=== PATIENT | male | born 1990 | race Caucasian/White ===

== ENCOUNTER 2017-10-11 11:31 | Emergency (ER) | payer BC, MEDICAID ==
[2017-10-11 11:31] VITALS: BMI 18.8
[2017-10-11 11:39] VITALS: RESP 18
--- NOTE | 2017-10-11 11:52 | ED PDOC ---
Arrival/HPI - General Historian: Patient - History of Present Illness Time/Duration: < week Symptom Onset: Sudden Symptom Course: Unchanged Quality: Stabbing <Kodak Spencer - Last Filed: 10/11/17 16:43> - History of Present Illness Severity Level: Severe Activities at Onset: Rest Context: Home <Nithin Garcia - Last Filed: 10/11/17 17:56> - General Chief Complaint: Chest Pain Time Seen by Provider: 10/11/17 11:33 - History of Present Illness Narrative History of Present Illness (Text): 10/11/17 11:48 Pt is a 27 yo M with PMH of asthma, arthritis, seizure and lupus presents to ED due to a 2 day history of constant chest pain. Patient states that pain is sharp , midsternal, and radiates to right side of chest. Patient states that pain is worsened with exertion and deep inspiration. Patient tried using Prednisone, Zantac, and 800 mg of Ibuprofen to relieve the pain, but those did not help. Patient denies SOB, nausea, vomiting, abdominal pain, fever, chills, cough, trauma, DELACRUZ, or dizziness. No family cardiac history. PMD: Paulie (Kodak Spencer) Past Medical History - Provider Review Nursing Documentation Reviewed: Yes - Infectious Disease Hx of Infectious Diseases: None - Tetanus Immunization Tetanus Immunization: Up to Date - Cardiac Hx Cardiac Disorders: No Hx Hypertension: No - Pulmonary Hx Tuberculosis: No - Neurological HX Cerebrovascular Accident: No Hx Seizures: Yes - Hematological/Oncological Hx Cancer: No - Genitourinary/Gynecological Hx Sexually Transmitted Diseases: No - Psychiatric Hx Depression: No Hx Emotional Abuse: No Hx Physical Abuse: No Hx Substance Use: No - Past Surgical History Past Surgical History: No Previous - Suicidal Assessment Feels Threatened In Home Enviroment: No <Kodak Spencer - Last Filed: 10/11/17 16:43> - Travel History Have you recently traveled outside [place] w/in the past 3 mons?: No - Past History Past History: Non-Contributing <Nithin Garcia - Last Filed: 10/11/17 17:56> Family/Social History - Physician Review Nursing Documentation Reviewed: Yes Family/Social History: No Known Family HX Hx Alcohol Use: No Hx Substance Use: No Hx Substance Use Treatment: No <Kodak Spencer - Last Filed: 10/11/17 16:43> Allergies/Home Meds <Kodak Spencer - Last Filed: 10/11/17 16:43> <JoseNithin - Last Filed: 10/11/17 17:56> Allergies/Adverse Reactions: Allergies No Known Allergies Allergy (Verified 01/12/14 01:23) Home Medications: Home Meds Medication Instructions Recorded Confirmed Zonisamide [Zonisamide] 200 mg PO BID 01/12/14 01/12/14 Review of Systems - Review of Systems Constitutional: Normal Eyes: Normal ENT: Normal Respiratory: Normal Cardiovascular: Chest Pain. absent: Palpitations, Edema, Calf Pain Gastrointestinal: Normal Genitourinary Male: Normal Musculoskeletal: Normal Skin: Normal Neurological: Normal Endocrine: Normal Hemo/Lymphatic: Normal Psychiatric: Normal <Carlito SpencerKodak - Last Filed: 10/11/17 16:43> Physical Exam Temperature: Afebrile Blood Pressure: Normal Pulse: Regular Respiratory Rate: Normal Appearance: Positive for: Non-Toxic Pain Distress: Moderate Mental Status: Positive for: Alert and Oriented X 3 - Systems Exam Head: Present: Atraumatic, Normocephalic Pupils: Present: PERRL Extroacular Muscles: Present: EOMI Conjunctiva: Present: Normal Mouth: Present: Moist Mucous Membranes Neck: Present: Normal Range of Motion Respiratory/Chest: Present: Clear to Auscultation, Good Air Exchange. No: Respiratory Distress, Accessory Muscle Use Cardiovascular: Present: Regular Rate and Rhythm, Normal S1, S2, Other (sternum TTP, right chest TTP). No: Murmurs Abdomen: No: Tenderness, Distention, Peritoneal Signs Back: Present: Normal Inspection Upper Extremity: Present: Normal Inspection. No: Cyanosis, Edema Lower Extremity: Present: Normal Inspection. No: Edema Neurological: Present: GCS=15, CN II-XII Intact, Speech Normal Skin: Present: Warm, Dry, Normal Color. No: Rashes Psychiatric: Present: Alert, Oriented x 3, Normal Insight, Normal Concentration <JohannaKodak - Last Filed: 10/11/17 16:43> Pulse: Tachycardic <Nithin Garcia - Last Filed: 10/11/17 17:56> Vital Signs Temp Pulse Resp BP Pulse Ox 10/11/17 16:36 98.1 F 71 18 101/59 L 96 10/11/17 15:48 71 18 116/74 95 10/11/17 13:03 91 H 18 114/79 99 10/11/17 11:44 98.2 F 113 H 18 112/83 100 10/11/17 11:39 98.2 F 113 H 18 112/83 100 Medical Decision Making <Kodak Spencer - Last Filed: 10/11/17 16:43> Re-evaluation Time: 16:30 Reassessment Condition: Improving,but remains with symptoms - Lab Interpretations I have reviewed the lab results: Yes Interpretation: Abnormal lab values (all labs normal except for slightly elevated lipase) - RAD Interpretation Plate Shop Helper: Radiologist - EKG Interpretation Interpreted by ED Physician: Yes Type: 12 lead EKG Comparison: No previous EKG avail. <Nithin Garcia - Last Filed: 10/11/17 17:56> ED Course and Treatment: 10/11/17 12:03 27 yo M presents with 2 day history of chest pain. Plan: - CBC, CMP - Coags - Cardiac ISO - Lipase - ESR, CRP - EKG - CXR - UA - Toradol - Reassess and disposition 10/11/17 12:18 PERC negative EKG reviewed shows rate of 99, NSR with sinus arrhythmia, biatrial enlargement. No ST-T wave abnormalities. 10/11/17 13:28 CXR reviewed by radiologist shows no active disease. 10/11/17 13:44 On reassessment, patient pain worsening after Toradol. Morphine and Benadryl given. Patient states that pain improved somewhat with those medications. CTA of chest ordered. 10/11/17 15:03 CTA Chest Impression: Unremarkable CT pulmonary angiogram. No pulmonary embolism. On reassessment, patient sleeping lying comfortably in bed. Patient pain improved, no tremors. Repeat Troponin and EKG. 10/11/17 15:18 Repeat EKG reviewed shows rate of 85, NSR, possible left atrial enlargement, no acute changes. 10/11/17 16:43 Repeat Troponin negative. Results discussed with patient. patient medically stable for discahrge. Will follow up with promotions coordinator as scheduled. (Kodak Spencer) I performed the hx and physical exam of the patient and discussed their mgt with the RESIDENT. I reviewed the RESIDENT's NOTE and agree with the assessment and plan of care. pt with reproducible substernal chest tenderness on exam no crepitus noted CTA b/l, no w/r/r, no lesions/rashes noted +S1, +S2, no m/r/r ext: no pitting edema noted b/l, intact ROM, strength 5/5 grossly intact in all limbs; no debora's sign after medications, pt felt improved 1545 - with negative CT chest results and negative 2nd trop, pt unlikely at risk for ACS/PE cause of symptoms atypical chest pain, likely explanation of pt's discomfort vital signs unchanged/stable 1645 pt remained comfortable pt/family are made aware of pt's medical results pt is encouraged fluids pt will follow up as directed pt will be discharged home (Nithin Garcia) - Lab Interpretations Lab Results: 10/11/17 11:40 10/11/17 11:40 Lab Results 10/11/17 15:30: Troponin I < 0.01 10/11/17 13:55: TSH 3rd Generation 3.31 10/11/17 11:40: C-Reactive Protein Pending, Lipase 316 H 10/11/17 11:40: ESR 11 10/11/17 11:40: Sodium 142, Potassium 3.8, Chloride 103, Carbon Dioxide 22, Anion Gap 21 H, BUN 17, Creatinine 0.9, Est GFR ( Amer) > 60, Est GFR ( Non-Af Amer) > 60, Random Glucose 92, Calcium 9.7, Magnesium 2.0, Total Bilirubin 0.9, AST 24, ALT 37, Alkaline Phosphatase 72, Lactate Dehydrogenase 443, Total Creatine Kinase 61, Troponin I < 0.01, Total Protein 8.2, Albumin 4.8 , Globulin 3.4, Albumin/Globulin Ratio 1.4 10/11/17 11:40: PT 18.0 H, INR 1.55 H, APTT 29.1 10/11/17 11:40: WBC 9.9, RBC 5.15, Hgb 15.9, Hct 42.4, MCV 82.3, MCH 30.9, MCHC 37.5 H, RDW 12.9, Plt Count 249, MPV 8.7, Gran % 67.1, Lymph % (Auto) 22.6, [place] % (Auto) 8.9 H, Eos % (Auto) 1.3 L, Baso % (Auto) 0.1, Gran # 6.64 H, Lymph # (Auto) 2.2, [place] # (Auto) 0.9 H, Eos # (Auto) 0.1, Baso # (Auto) 0.01 - RAD Interpretation Narrative RAD Interpretations (Text): Chest X-Ray: HISTORY: chest pain COMPARISON: Chest 07/10/2017. FINDINGS: LUNGS: No active pulmonary disease. PLEURA: No significant pleural effusion identified, no pneumothorax apparent. Minor left apical pleural thickening CARDIOVASCULAR: Normal. OSSEOUS STRUCTURES: No significant abnormalities. VISUALIZED UPPER ABDOMEN: Normal. OTHER FINDINGS: None. IMPRESSION: No active disease. 10/11/17 17:48 PROCEDURE: CT Chest with contrast (Pulmonary Angiogram) HISTORY: r/o PE COMPARISON: None available. TECHNIQUE: Axial computed tomography images were obtained of the chest in the pulmonary arterial phase of enhancement. Coronal and sagittal reformatted images were created and reviewed. Intravenous contrast dose: 100 Omnipaque 350 contrast Radiation dose: Total exam DLP = 180.58 mGy-cm. This CT exam was performed using one or more of the following dose reduction techniques: Automated exposure control, adjustment of the mA and/or kV according to patient size, and/or use of iterative reconstruction technique. FINDINGS: PULMONARY ARTERIES: Unremarkable. No pulmonary embolism. AORTA: No acute findings. No thoracic aortic aneurysm. LUNGS: Unremarkable. No nodule, mass or pulmonary consolidation. PLEURAL SPACES: Unremarkable. No effusion or pneumothorax. . HEART: Unremarkable. No cardiomegaly. No significant pericardial effusion. LYMPH NODES: No lymphadenopathy. . There is a small hiatal hernia with slight wall thickening of the distal esophagus likely due to protrusion of gastric mucosa. Possibility of esophagitis not excluded. BONES, CHEST WALL: Unremarkable. No fracture or destructive lesion OTHER FINDINGS: Unremarkable. IMPRESSION: Unremarkable CT pulmonary angiogram. No pulmonary embolus. (Nithin Garcia) Radiology Orders: 10/11/17 11:44 CHEST PORTABLE [RAD] Stat 10/11/17 13:40 ANGIO CHEST PE PROTOCOL [CT] Stat - EKG Interpretation EKG Interpretation (Text): 10/11/17 17:48 EKG: NSR at 100 bpm, normal axis, no ectopy, inverted T in leads V1-2, no st changes, ABNL EKG; no old ekg to compare with (Nithin Garcia) - Medication Orders Current Medication Orders: Discontinued Medications Diphenhydramine HCl (Benadryl) 25 mg IVP STAT STA Stop: 10/11/17 13:17 Last Admin: 10/11/17 13:30 Dose: 25 mg IVP Administration Document 10/11/17 13:30 EQ (Rec: 10/11/17 13:[address] [email or web address]) Charges for Administration # of IVP Administrations 1 Ketorolac Tromethamine (Toradol) 15 mg IVP STAT STA Stop: 10/11/17 12:05 Last Admin: 10/11/17 12:17 Dose: 15 mg MAR Pain Assessment Document 10/11/17 12:17 EQ (Rec: 10/11/17 12:17 EQ [email or web address]) Pain Reassessment Is this a pain reassessment? No Sleep Is patient sleeping during reassessment? No Presence of Pain Presence of Pain Yes IVP Administration Document 10/11/17 12:17 EQ (Rec: 10/11/17 12:17 EQ [email or web address]) Charges for Administration # of IVP Administrations 1 Morphine Sulfate (Morphine) 4 mg IVP STAT STA Stop: 10/11/17 13:17 Last Admin: 10/11/17 13:30 Dose: 4 mg MAR Pain Assessment Document 10/11/17 13:30 EQ (Rec: 10/11/17 13:[address] [facility] [id number]) Pain Reassessment Is this a pain reassessment? No Sleep Is patient sleeping during reassessment? No Presence of Pain Presence of Pain Yes Pain Scale Used Pain Scale Used Numeric IVP Administration Document 10/11/17 13:30 EQ (Rec: 10/11/17 13:[address] [facility] [id number]) Charges for Administration # of IVP Administrations 1 Disposition/Present on Arrival - Present on Arrival Any Indicators Present on Arrival: No History of DVT/PE: No History of Uncontrolled Diabetes: No Urinary Catheter: No History Surgical Site Infection Following: None - Disposition Have Diagnosis and Disposition been Completed?: Yes Disposition Time: 16:44 <JohannaKodak - Last Filed: 10/11/17 16:43> - Present on Arrival History of Decub. Ulcer: No - Disposition Patient Plan: Discharge <Nithin Garcia - Last Filed: 10/11/17 17:56> - Disposition Diagnosis: Chest pain Disposition: HOME/ ROUTINE Condition: STABLE Discharge Instructions (ExitCare): Chest Pain That Is Not Caused by the Heart ( [place]) Print Language: ESTONIAN Additional Instructions: 1. Follow up with rhematologist as scheduled 2. Take Naprosyn as needed, if taking Naprosyn do not take ibuprofen 3. Return to ED if symptoms worsen BRODIE YBARRA, thank you for letting us take care of you today. Your provider was Nithin Garcia MD and you were treated for CHEST PAIN. The emergency medical care you received today was directed at your acute symptoms. If you were prescribed any medication, please fill it and take as directed. It may take several days for your symptoms to resolve. Return to the Emergency Department if your symptoms worsen, do not improve, or if you have any other problems. Please contact your doctor or call one of the physicians/clinics you have been referred to that are listed on the Patient Visit Information form that is included in your discharge packet. Bring any paperwork you were given at discharge with you along with any medications you are taking to your follow up visit. Our treatment cannot replace ongoing medical care by a primary care provider outside of the emergency department. Thank you for allowing the [facility] team to be part of your care today. Prescriptions: Naproxen [Naprosyn] 500 mg PO TID PRN #15 tablet PRN Reason: Pain, Moderate (4-7) Forms: [employer] (Mongolian)
[2017-10-11 11:54] LABS: BASO # 0.01 K/mm3 (0.0-2.0); BASO % 0.1 % (0.0-3.0); EOS # 0.1 (0.0-0.7); EOS % 1.3 % (1.5-5.0); GRAN # 6.64 (1.4-6.5); GRAN % 67.1 % (50.0-68.0); HEMOGLOBIN 15.9 g/dL (14.0-18.0); LYMPH # 2.2 (1.2-3.4); LYMPH % 22.6 % (22.0-35.0); MEAN CELL VOLUME 82.3 fl (80.0-105.0); MEAN CORPUSCULAR HEMOGLOBIN 30.9 pg (25.0-35.0); MEAN CORPUSCULAR HGB CONC 37.5 g/dl (31.0-37.0); MEAN PLATELET VOLUME 8.7 fl (7.0-11.0); MONO # 0.9 (0.1-0.6); MONO % 8.9 % (1.0-6.0); RBC 5.15 10^6/uL (3.5-6.1); RED CELL DISTRIBUTION WIDTH 12.9 % (11.5-14.5); WHITE BLOOD COUNT 9.9 10^3/ul (4.5-11.0)
[2017-10-11 12:04] LABS: ALB/GLOB RATIO 1.4 (1.1-1.8); ALBUMIN 4.8 g/dL (3.0-4.8); ALT/SGPT 37 U/L (7-56); AST/SGOT 24 U/L (17-59); BLOOD UREA NITROGEN 17 mg/dL (7-21); CALCIUM 9.7 mg/dL (8.4-10.5); GFR AFRICAN-AMERICAN > 60; GFR NON-AFRICAN AMERICAN > 60
[2017-10-11 12:15] LABS: TROPONIN I < 0.01 ng/mL
[2017-10-11 12:33] LABS: INR 1.55 (0.93-1.08); PARTIAL THROMBOPLASTIN TIME 29.1 Seconds (25.1-36.5)
--- NOTE | 2017-10-11 12:39 | RAD ---
HISTORY: chest pain COMPARISON: Chest 07/10/2017. FINDINGS: LUNGS: No active pulmonary disease. PLEURA: No significant pleural effusion identified, no pneumothorax apparent. Minor left apical pleural thickening CARDIOVASCULAR: Normal. OSSEOUS STRUCTURES: No significant abnormalities. VISUALIZED UPPER ABDOMEN: Normal. OTHER FINDINGS: None. IMPRESSION: No active disease.
[2017-10-11] MEDS ORDERED: DiphenhydrAMINE 50 mg/ml Inj IVP STA (13:16)
[2017-10-11] MEDS ORDERED: Morphine 4 mg/ml ISec IVP STA (13:16)
[2017-10-11] MEDS ORDERED: Iohexol 350 MG/100 ML VIAL ONE (13:59)
--- NOTE | 2017-10-11 14:48 | CT ---
PROCEDURE: CT Chest with contrast (Pulmonary Angiogram) HISTORY: r/o PE COMPARISON: None available. TECHNIQUE: Axial computed tomography images were obtained of the chest in the pulmonary arterial phase of enhancement. Coronal and sagittal reformatted images were created and reviewed. Intravenous contrast dose: 100 Omnipaque 350 contrast Radiation dose: Total exam DLP = 180.58 mGy-cm. This CT exam was performed using one or more of the following dose reduction techniques: Automated exposure control, adjustment of the mA and/or kV according to patient size, and/or use of iterative reconstruction technique. FINDINGS: PULMONARY ARTERIES: Unremarkable. No pulmonary embolism. AORTA: No acute findings. No thoracic aortic aneurysm. LUNGS: Unremarkable. No nodule, mass or pulmonary consolidation. PLEURAL SPACES: Unremarkable. No effusion or pneumothorax. . HEART: Unremarkable. No cardiomegaly. No significant pericardial effusion. LYMPH NODES: No lymphadenopathy. . There is a small hiatal hernia with slight wall thickening of the distal esophagus likely due to protrusion of gastric mucosa. Possibility of esophagitis not excluded. BONES, CHEST WALL: Unremarkable. No fracture or destructive lesion OTHER FINDINGS: Unremarkable. IMPRESSION: Unremarkable CT pulmonary angiogram. No pulmonary embolus.
[2017-10-11 15:48] VITALS: PULSE 71
[2017-10-11 16:46] VITALS: BP 101/59; TEMP 98.1; O2SAT 96
--- NOTE | 2017-10-12 13:47 | CARD ---
APPROVED REPORT EKG Measurement Heart [id number] <Conclusion> Normal sinus rhythm Possible Left atrial enlargement Borderline ECG
--- NOTE | 2017-10-12 13:50 | CARD ---
APPROVED REPORT EKG Measurement Heart [id number] <Conclusion> Normal sinus rhythm with sinus arrhythmia Biatrial enlargement Abnormal ECG
== END 2017-10-11 17:00 | disposition home or self-care (01) ==
LOC: ED 11:31
DX: R07.9 Chest pain, unspecified (principal); M32.9 Systemic lupus erythematosus, unspecified
CPT/HCPCS: 71045; 71275; 80053; 82550; 83615; 83690; 83735; 84443; 84484; 85025; 85610; 85651; 85730; 86140; 93005; 96374; 96375; 99283; J1200; J1885; J2270; Q9967

== ENCOUNTER 2017-11-15 17:21 | Emergency (ER) | payer MEDICAID ==
[2017-11-15 17:21] VITALS: BMI 18.8
[2017-11-15] MEDS ORDERED: Sodium Chloride 0.9% 1,000 ML IV SCH (17:45)
[2017-11-15 17:47] VITALS: RESP 18; TEMP 98.2
--- NOTE | 2017-11-15 17:49 | ED PDOC ---
Arrival/HPI <Paul Betancourt - Last Filed: 11/15/17 21:31> - General Historian: Patient - History of Present Illness Time/Duration: 24 hours Symptom Onset: Gradual Symptom Course: Unchanged Quality: Burning Activities at Onset: Light Context: Home <Russ Currie - Last Filed: 11/15/17 21:34> - General Chief Complaint: Chest Pain Time Seen by Provider: 11/15/17 17:24 - History of Present Illness Narrative History of Present Illness (Text): 11/15/17 17:41 27 year old male, with past medical history of asthma, arthritis, seizure and lupus, and no known food or drug allergies presents to the Emergency Department complaining of epigastric chest pain since 10am yesterday. Patient described as sharp burning sensation across his chest from epigastric region, prompting him to present to the Emergency Department for evaluation. Patient informs similar symptoms in the past for which he was seen in the Emergency Department in September 2017 with no significant findings, never follow up with the GI/er physician. Patient denies any fever, chills, trauma, fall, nausea, vomiting, diarrhea, shortness of breath, palpitation, numbness, tingling, jaw pain, neck pain or any other complaints. (Russ Currie) Past Medical History - Provider Review Nursing Documentation Reviewed: Yes - Past History Past History: Non-Contributing - Infectious Disease Hx of Infectious Diseases: None - Tetanus Immunization Tetanus Immunization: Up to Date - Cardiac Hx Cardiac Disorders: No Hx Hypertension: No - Pulmonary Hx Tuberculosis: No - Neurological HX Cerebrovascular Accident: No Hx Seizures: Yes - Hematological/Oncological Hx Cancer: No - Genitourinary/Gynecological Hx Sexually Transmitted Diseases: No - Psychiatric Hx Depression: No Hx Emotional Abuse: No Hx Physical Abuse: No Hx Substance Use: No - Past Surgical History Past Surgical History: No Previous - Anesthesia Hx Anesthesia: No Hx Anesthesia Reactions: No Hx Malignant Hyperthermia: No - Suicidal Assessment Feels Threatened In Home Enviroment: No <Russ Currie - Last Filed: 11/15/17 21:34> Family/Social History - Physician Review Nursing Documentation Reviewed: Yes Family/Social History: No Known Family HX Smoking Status: Never Smoked Hx Alcohol Use: No Hx Substance Use: No Hx Substance Use Treatment: No <Russ Currie - Last Filed: 07/28/18 21:34> Allergies/Home Meds <Paul Betancourt - Last Filed: 11/15/17 21:31> <Russ Currie - Last Filed: 11/15/17 21:34> Allergies/Adverse Reactions: Allergies No Known Allergies Allergy (Verified 01/12/14 01:23) Home Medications: Home Meds Medication Instructions Recorded Confirmed Zonisamide [Zonegran] 200 mg PO BID 11/15/17 11/15/17 Review of Systems - Physician Review All systems were reviewed & negative as marked: Yes - Review of Systems Constitutional: absent: Fatigue, Fevers Eyes: absent: Vision Changes ENT: absent: Hearing Changes Respiratory: absent: SOB, Cough, Sputum Cardiovascular: Chest Pain Gastrointestinal: Abdominal Pain. absent: Diarrhea, Nausea, Vomiting Musculoskeletal: absent: Arthralgias, Back Pain, Neck Pain Skin: absent: Rash, Pruritis Neurological: absent: Headache, Dizziness Psychiatric: absent: Anxiety, Depression <Russ Currie - Last Filed: 11/15/17 21:34> Physical Exam Vital Signs Reviewed: Yes Temperature: Afebrile Blood Pressure: Normal Pulse: Regular Respiratory Rate: Normal Appearance: Positive for: Well-Appearing, Non-Toxic, Comfortable Pain Distress: Moderate Mental Status: Positive for: Alert and Oriented X 3 - Systems Exam Head: Present: Atraumatic, Normocephalic Pupils: Present: PERRL Extroacular Muscles: Present: EOMI Conjunctiva: Present: Normal Mouth: Present: Moist Mucous Membranes Neck: Present: Normal Range of Motion Respiratory/Chest: Present: Clear to Auscultation, Good Air Exchange. No: Respiratory Distress, Accessory Muscle Use, Wheezes, Decreased Breath Sounds, Rales, Retracting, Rhonchi, Tachypneic, Tender to Palpation Cardiovascular: Present: Regular Rate and Rhythm, Normal S1, S2. No: Murmurs Abdomen: Present: Tenderness (+ttp on the epigastric region, negative davidson sign, no cva tenderness). No: Distention, Peritoneal Signs, Rebound, Guarding Back: Present: Normal Inspection. No: CVA Tenderness, Midline Tenderness, Paraspinal Tenderness, Pain with Leg Raise, Decubitus Ulcer Upper Extremity: Present: Normal Inspection. No: Cyanosis, Edema Lower Extremity: Present: Normal Inspection. No: Edema Neurological: Present: GCS=15, CN II-XII Intact, Speech Normal, Motor Func Grossly Intact, Gait Normal, Memory Normal Skin: Present: Warm, Dry, Normal Color. No: Rashes Psychiatric: Present: Alert, Oriented x 3, Normal Insight, Normal Concentration <Russ Currie - Last Filed: 11/15/17 21:34> Vital Signs Temp Pulse Resp BP Pulse Ox 11/15/17 17:21 98.2 F 81 18 111/70 99 Medical Decision Making <Paul Betancourt - Last Filed: 11/15/17 21:31> - Lab Interpretations I have reviewed the lab results: Yes - RAD Interpretation Spotter: Radiologist - EKG Interpretation Interpreted by ED Physician: Yes Type: 12 lead EKG Comparison: Com.w/previous EKG <Russ Currie - Last Filed: 11/15/17 21:34> ED Course and Treatment: 11/15/17 17:50 Differential: Gastritis vs. PR vs. Pancreatitis vs. Drug abuse -Labs -EKG -CXR -IVF/pepcid/zofran -Observe and reassess 11/15/17 21:33 -Case discussed with Dr. Morris about this case earlier with the plan of care and labs/radiology orders. -HEART score is 1, low -PERC criteria is Zero -EKG: Sinus Tachycardia @ 106 BPM, no ST elevation or depression, no T wave inversion -Chest xray: compared with previous CXR, no active disease -Gallbladder sonogram: Normal right upper quadrant ultrasound. -Labs show no acute findings -Troponin is negative after 24 hours -Pt. feels better after medications given in the ER -Discharge home with carafate, education on continue your ompe but take it during morning with a cup of water and wait 1 hour prior to eating, keep your appointment with your GI for endoscopy and to test if you have h.pylori infection, follow up with your own pmd and er physician within 2 days, return to the Er for any new or worsening signs or symptoms. (Russ Currie) - Lab Interpretations Lab Results: 11/15/17 17:52 11/15/17 17:52 Lab Results 11/15/17 17:52: Sodium 142, Potassium 3.8, Chloride 103, Carbon Dioxide 24, Anion Gap 19, BUN 17, Creatinine 1.0, Est GFR ( Amer) > 60, Est GFR (Non- Af Amer) > 60, Random Glucose 92, Calcium 9.7, Magnesium 2.0, Total Bilirubin 1.1, AST 25, ALT 32, Alkaline Phosphatase 52, Lactate Dehydrogenase 405, Total Creatine Kinase 170, Troponin I < 0.01, Total Protein 8.1, Albumin 4.9 H, Globulin 3.2, Albumin/Globulin Ratio 1.5, Lipase 43 11/15/17 17:52: WBC 7.3 D, RBC 5.08, Hgb 15.3, Hct 42.4, MCV 83.5, MCH 30.1, MCHC 36.1, RDW 12.9, Plt Count 203, MPV 9.2, Gran % 71.2 H, Lymph % (Auto) 19.7 L, [place] % (Auto) 8.3 H, Eos % (Auto) 0.8 L, Baso % (Auto) 0.0, Gran # 5.18, Lymph # (Auto) 1.4, [place] # (Auto) 0.6, Eos # (Auto) 0.1, Baso # (Auto) 0.00 - RAD Interpretation Radiology Orders: 11/15/17 17:41 CHEST PORTABLE [RAD] Stat 11/15/17 19:27 GALLBLADDER & COMMON DUCT [US] Stat Chest xray: Lungs: Unremarkable. No consolidation. Pleural space: Unremarkable. No pneumothorax. Heart: Unremarkable. No cardiomegaly. Mediastinum: Unremarkable. Bones/joints: Unremarkable. IMPRESSION: Normal chest x-ray. Thank you for allowing us to participate in the care of your patient. Dictated and Authenticated by: Ari Tracey MD 11/15/2017 7:41 PM Eastern Time ([place] & [place]) ---- Gallbladder sonogram: FINDINGS: Liver: Unremarkable. No mass. No intrahepatic bile duct dilation. Gallbladder: Unremarkable. No gallstones. Common bile duct: Unremarkable as visualized. No stones. 4.4 cm Pancreas: Unremarkable as visualized. Right kidney: Unremarkable. No stones. No solid mass. No hydronephrosis. RIGHT kidney measures 9.4 cm x 3.5 cm x 5.5 cm IMPRESSION: Normal right upper quadrant ultrasound. Thank you for allowing us to participate in the care of your patient. Dictated and Authenticated by: Ari Tracey MD 11/15/2017 9:21 PM Eastern Time ([place] & [place]) (Russ Currie) - EKG Interpretation EKG Interpretation (Text): 11/15/17 17:59 -EKG: Sinus Tachycardia @ 106 BPM, no ST elevation or depression, no T wave inversion (Russ Currie) - Medication Orders Current Medication Orders: Sodium Chloride (Sodium Chloride 0.9%) 1,000 mls @ 100 mls/hr IV .Q10H SNEHA Last Admin: 11/15/17 17:58 Dose: 100 mls/hr eMAR Start Stop Document 11/15/17 17:58 EWO (Rec: 11/15/17 17:58 JULIETTE [id number]) Intravenous Solution Start Date 11/15/17 Start Time 17:58 Discontinued Medications Al Hydrox/Mg Hydrox/Simethicone (Maalox Plus 30 Ml) 30 ml PO STAT STA Stop: 11/15/17 19:28 Last Admin: 11/15/17 19:59 Dose: 30 ml Dicyclomine HCl (Bentyl) 20 mg PO STAT STA Stop: 11/15/17 19:28 Last Admin: 11/15/17 19:59 Dose: 20 mg Famotidine (Pepcid) 20 mg IVP STAT STA Stop: 11/15/17 17:42 Last Admin: 11/15/17 17:58 Dose: 20 mg IVP Administration Document 11/15/17 17:58 EWO (Rec: 11/15/17 17:58 Darcy [id number]) Charges for Administration # of IVP Administrations 1 Lidocaine HCl (Lidocaine 2% Viscous) 15 ml PO STAT STA Stop: 11/15/17 19:28 Last Admin: 11/15/17 19:59 Dose: 15 ml Ondansetron HCl (Zofran Inj) 4 mg IVP STAT STA Stop: 11/15/17 17:42 Last Admin: 11/15/17 17:58 Dose: 4 mg IVP Administration Document 11/15/17 17:58 EWO (Rec: 11/15/17 17:58 JULIETTE [id number]) Charges for Administration # of IVP Administrations 1 - PA / ASSISTANT PROFESSOR OF [employer]IMINAL JUSTICE / Resident Statement RANJEET has reviewed & agrees with the documentation as recorded. <SerafinPaul - Last Filed: 11/15/17 21:31> - PA / ASSISTANT PROFESSOR [employer]IN[employer] / Resident Statement RANJEET has reviewed & agrees with the documentation as recorded. - Scribe Statement The provider has reviewed the documentation as recorded by the Scribe <Russ Currie - Last Filed: 11/15/17 21:34> - Scribe Statement Rd Matthews. All medical record entries made by the Scribe were at my direction and personally dictated by me. I have reviewed the chart and agree that the record accurately reflects my personal performance of the history, physical exam, medical decision making, and the department course for this patient. I have also personally directed, reviewed, and agree with the discharge instructions and disposition. (Russ Currie) Disposition/Present on Arrival <SerafinPaul - Last Filed: 11/15/17 21:31> - Present on Arrival Any Indicators Present on Arrival: No History of DVT/PE: No History of Uncontrolled Diabetes: No Urinary Catheter: No History of Decub. Ulcer: No History Surgical Site Infection Following: None - Disposition Have Diagnosis and Disposition been Completed?: Yes Disposition Time: 21:34 Patient Plan: Discharge <Russ Currie - Last Filed: 11/15/17 21:34> - Disposition Diagnosis: Atypical chest pain, Epigastric abdominal pain Disposition: HOME/ ROUTINE Patient Problems: Current Active Problems Problem Status Onset Atypical chest pain Acute Epigastric abdominal pain Acute Condition: IMPROVED Discharge Instructions (ExitCare): Chest Pain (ED) Additional Instructions: -Discharge home with carafate, education on continue your omeprazole but take it during morning with a cup of water and wait 1 hour prior to eating, keep your appointment with your GI for endoscopy and to test if you have h.pylori infection, follow up with your own pmd and er physician within 2 days, return to the Er for any new or worsening signs or symptoms. Prescriptions: Sucralfate [Carafate] 10 ml PO QID #500 ml Referrals: Sunil Morrison DO [Staff Provider] - Follow up with primary Murray Cuadra MD [Staff Provider] - Follow up with primary Forms: [facility] (Gambian), WORK NOTE
[2017-11-15 18:07] LABS: EOS # 0.1 (0.0-0.7); EOS % 0.8 % (1.5-5.0); GRAN # 5.18 (1.4-6.5); GRAN % 71.2 % (50.0-68.0); HEMOGLOBIN 15.3 g/dL (14.0-18.0); LYMPH # 1.4 (1.2-3.4); LYMPH % 19.7 % (22.0-35.0); MEAN CELL VOLUME 83.5 fl (80.0-105.0); MEAN CORPUSCULAR HEMOGLOBIN 30.1 pg (25.0-35.0); MEAN CORPUSCULAR HGB CONC 36.1 g/dl (31.0-37.0); MEAN PLATELET VOLUME 9.2 fl (7.0-11.0); MONO # 0.6 (0.1-0.6); MONO % 8.3 % (1.0-6.0); RBC 5.08 10^6/uL (3.5-6.1); RED CELL DISTRIBUTION WIDTH 12.9 % (11.5-14.5); WHITE BLOOD COUNT 7.3 10^3/ul (4.5-11.0)
[2017-11-15 18:41] LABS: TROPONIN I < 0.01 ng/mL
[2017-11-15 18:56] LABS: ALB/GLOB RATIO 1.5 (1.1-1.8); ALBUMIN 4.9 g/dL (3.0-4.8); ALT/SGPT 32 U/L (7-56); AST/SGOT 25 U/L (17-59); BLOOD UREA NITROGEN 17 mg/dL (7-21); CALCIUM 9.7 mg/dL (8.4-10.5); GFR AFRICAN-AMERICAN > 60; GFR NON-AFRICAN AMERICAN > 60; LIPASE 43 U/L (23-300)
[2017-11-15] MEDS ORDERED: Alum-Mag Hydrox-Simethicone Susp (30 mL) PO STA (19:27)
[2017-11-16 00:09] VITALS: BP 95/62; PULSE 62; O2SAT 100
--- NOTE | 2017-11-16 10:44 | RAD ---
Date of service: 11/15/2017 HISTORY: chest pain x 2 days COMPARISON: 10/11/2017. FINDINGS: LUNGS: No active pulmonary disease. PLEURA: No significant pleural effusion identified, no pneumothorax apparent. CARDIOVASCULAR: Normal. OSSEOUS STRUCTURES: No significant abnormalities. VISUALIZED UPPER ABDOMEN: Normal. OTHER FINDINGS: None. IMPRESSION: No active disease. No significant interval change compared to the prior examination(s). Concordant results with the preliminary interpretation rendered by the emergency department physician procedure.
--- NOTE | 2017-11-16 10:45 | US ---
Date of service: 11/15/2017 HISTORY: epigastric pain COMPARISON: None. TECHNIQUE: Sonographic evaluation of the right upper quadrant of the abdomen. FINDINGS: LIVER: Measures 13.7 cm in length. Patent portal vein. Portal venous flow: Hepatopetal. Unremarkable echogenicity of the liver parenchyma. No mass. No intrahepatic bile duct dilatation. GALLBLADDER: Unremarkable. No gallstones. COMMON BILE DUCT: Measures 4.4 mm. No stones. No dilatation. PANCREAS: Unremarkable as visualized. No mass. No ductal dilatation. RIGHT KIDNEY: Measures 3.6 x 9.5 cm in length. Normal echogenicity. No calculus, mass, or hydronephrosis. AORTA: No aneurysmal dilatation. IVC: Unremarkable. OTHER FINDINGS: None . IMPRESSION: No significant or acute findings to account for/ related to the clinical presentation. Concordant results (preliminary interpretation) provided by [facility]. Procedure Completed: 20:39 Preliminary ([facility]) Report: Dictated and Authenticated: 21:21. Final Interpretation: 10:44. November 16, 2017.
--- NOTE | 2017-11-16 12:56 | CARD ---
APPROVED REPORT Date of service: 11/15/2017 EKG Measurement Heart [id number] <Conclusion> Sinus tachycardia Right atrial enlargement Borderline ECG
== END 2017-11-15 21:17 | disposition home or self-care (01) ==
LOC: ED 17:21
DX: R07.89 Other chest pain (principal); R10.13 Epigastric pain; J45.909 Unspecified asthma, uncomplicated; M32.9 Systemic lupus erythematosus, unspecified
CPT/HCPCS: 71045; 76705; 80053; 82550; 83615; 83690; 83735; 84484; 85025; 93005; 96374; 96375; 99284; J2405; J7030